=== PATIENT | male | born 1995 ===

== ENCOUNTER 2025-03-06 11:48 | Emergency (ER) | payer BC ==
[~2025-03-06] VITALS: Ht 177.8 cm; Wt 86.0 kg
[2025-03-06 11:51] VITALS: TEMP 97.3
--- NOTE | 2025-03-06 12:15 | Physician Documentation ---
History of Present Illness Chief Complaint: Abdominal Pain Stated Complaint: ABD PAIN HPI Is a very pleasant 29-year-old male that presents to the emergency department for evaluation of protein in his urine and concern for pancreatitis per the [facility]. Patient reports he was seen at [facility] [place] he did not have any laboratory diagnostics other than a UA performed. They have sent him for evaluation of pancreatitis based on the UA findings. Patient denies history of drinking previously or current. Patient reports left-sided pain to his abdomen. Patient denies fever chills nausea vomiting diarrhea at this time. Medication Reconciliation Allergies: Coded Allergies: No Known Allergies (Unverified , 03/06/25) Past Medical History Past Medical History: No Pertinent History Review of Systems ROS As stated above in the HPI, otherwise all systems are reviewed and negative. Physical Exam Vital Signs: Temperature: 97.3, Source: Temporal, Heart Rate: 77, Respiratory Rate: 18, BP: 133/82, Pulse Oximetry: 100, Weight: 86.000 Oxygen Flow Rate: 0 Physical Exam VITALS: Reviewed and as above. GENERAL: Alert, nontoxic appearing, no apparent distress. RESPIRATORY: No increased work of breathing, no respiratory distress, speaking in full clear sentences, clear lung sounds all ling CV: Regular rate and rhythm no murmur BACK: No CVA tenderness GI: Left lower quadrant tender to palpation, other quadrants nontender to palpation, no rebound, no guarding, nondistended, no masses, bowel sounds present SKIN: No ecchymosis or erythema to the abdomen Progress Results/Orders Results/Orders Vital Signs 03/06/25 11:51 Temp 97.3 Pulse 77 Resp 18 B/P (MAP) 133/82 Pulse Ox 100 O2 Flow Rate 0 Medical Decision Making Additional information obtaine: N/A Findings This 29-year-old male presented to the emergency department with one day of left lower quadrant abdominal pain described as sharp worse with movement and walking, it was reassuring patient reported no nausea, vomiting, diarrhea, constipation, blood in stool, fevers, or chills and pain is limited to the left lower quadrant. Lab work was reassuring including UA without significant findings. Given location of pain in aggravation with movement and walking do believe there could be a musculoskeletal component though as patient reported abnormal UA earlier at its urgent care urolithiasis not ruled out. I discussed with the patient the next option being a CT scan and in discussion with the patient with risks and benefits and with shared decision-making patient has opted for watchful waiting approach, patient provided careful return to care precautions which he verbalized understanding of. Patient additionally provided home care instructions and follow up instructions which he verbalized understanding of. Patient is well-appearing and appropriate for outpatient follow up with treatment plan with [id number] medications for pain. Differential Dx:Considerations: Angina/OH, Aortic dissection, Appendicitis, Bowel obstruction, Cholelithasis, Constipation, Diverticular disease, Esophageal rupture, Esophagitis, Gastritis/PUD, Gastroenteritis, GI hemorrhage, Inflamma tory BD, Ischemic bowel, Testicular torsion, Urinary obstruction, Urinary tract infection, Urolithiasis Departure Disposition: HOME / SELF CARE / HOMELESS Impression: Primary Impression: Abdominal pain Qualified Codes: R10.32 - Left lower quadrant pain Condition: Improved Discharge Instructions: Abdominal Pain (Nonspecific) Additional Instructions: Please use ibuprofen and or Tylenol as needed for pain as directed by [id number] packaging. There was no clear cause of your abdominal pain however your exam and laboratory work was reassuring as we discussed we have not ruled out all possibilities though if this pain worsens please return to the emergency department immediately. Please follow up with your primary care provider in the next few days. Please return to the emergency department for any new or worsening concerning symptoms including but not limited to blood in your stool, persistent vomiting, or if you develop a fever. Referrals: NO PRIMARY CARE PROVIDER (PCP) Education Educated: Patient, Family Educated regarding: diagnosis, treatment, prognosis, need for follow up Signature Scribe Signature: No scribe Attestation: The note accurately reflects work and decisions made by me.MICHELET Hernandez 03/07/25 02:02 DARWIN MCCAULEY [facility] Mar 06, 2025 12:15 BIBI CARBAJAL [facility] Mar 06, 2025 17:15
[2025-03-06 12:32] LABS: MEAN PLATELET VOLUME 9.0 FL (7.4-10.4); RED CELL DISTRIBUTION WIDTH 13.0 % (11.5-14.5)
[2025-03-06 12:39] LABS: LEUKOCYTE ESTERASE ,URINE NEGATIVE (Neg); NITRITES, URINE NEGATIVE (Neg); OCCULT BLOOD,URINE NEGATIVE (Neg)
[2025-03-06 12:58] LABS: UA COLLECTION TYPE CLN CATCH MIDSTREAM
[2025-03-06 12:59] LABS: SQUAMOUS EPITHELIAL CELL,UR FEW /LPF (FEW)
[2025-03-06 12:59] LABS: CREATININE 0.79 MG/DL (0.60-1.10); TOTAL CARBON DIOXIDE 28.5 MMOL/L (24-32); eCRCL 141 ML/MIN; eGFR > 90 ML/MIN
[2025-03-06] MEDS: ketorolac trometh 15mg/ml vial 15 MG/ML ML IM ONE (17:06)
[2025-03-06 17:28] VITALS: BP 109/72; PULSE 88; RESP 16; O2SAT 99
== END 2025-03-06 17:31 | disposition home or self-care (01) ==
LOC: ER 11:50
DX: R10.32 Left lower quadrant pain (principal)
CPT/HCPCS: 36415; 80053; 81001; 83690; 85025; 96372; 99283; J1885